=== PATIENT | male | born 1985 | race Caucasian/White ===

== ENCOUNTER 2023-11-29 10:12 | Inpatient (IN) | payer OTHER ==
[2023-11-29 10:39] VITALS: BMI 30.1
[2023-11-29] MEDS ORDERED: BENZONATATE 200 MG CAPSULE PO PRN (11:45)
[2023-11-29] MEDS ORDERED: ACETAMINOPHEN 325 MG TABLET (FP) PO PRN (11:45)
[2023-11-29] MEDS ORDERED: NALOXONE (NARCAN) HCL 4 MG/0.1 ML SPRAY NS PRN (11:45)
[2023-11-29] MEDS ORDERED: IBUPROFEN 600 MG TABLET (FP) PO PRN (11:45)
[2023-11-29] MEDS ORDERED: MAGNESIUM HYDROX 2400MG/30ML ORAL SUSPENSION 30 ML CUP PO PRN (11:45)
[2023-11-29] MEDS ORDERED: hydrOXYzine PAMOATE 25 MG CAPSULE (FP) PO PRN (11:45)
[2023-11-29] MEDS ORDERED: DICYCLOMINE HCL 10 MG CAPSULE PO PRN (11:45)
[2023-11-29] MEDS ORDERED: guaiFENesin 600 MG TABLET.ER (FP) PO PRN (11:45)
[2023-11-29] MEDS ORDERED: IBUPROFEN 400 MG TABLET (FP) PO PRN (11:45)
[2023-11-29] MEDS ORDERED: METHOCARBAMOL 500 MG TABLET PO PRN (11:45)
[2023-11-29] MEDS ORDERED: ONDANSETRON *ODT* 4 MG TABLET SL PRN (11:45)
[2023-11-29] MEDS ORDERED: NALOXONE HCL 0.4 MG/ML VIAL IM PRN (11:45)
[2023-11-29] MEDS ORDERED: LOPERAMIDE HCL 2 MG CAPSULE PO PRN (11:45)
[2023-11-29] MEDS ORDERED: MAG HYDROX/AL HYDROX/SIMETH 30 ML UNIT-DOSE CUP PO PRN (11:45)
[2023-11-29] MEDS ORDERED: BISMUTH SUBSALICYLATE 524 MG/30 ML PO PRN (11:45)
[2023-11-29] MEDS ORDERED: BENZOCAINE/MENTHOL (CHLORASEPTIC ) LOZENGE MM PRN (11:45)
[2023-11-29] MEDS ORDERED: POLYETHYLENE GLYCOL (HEALTHYLAX) 3350 17 GM PACKET PO PRN (11:45)
[2023-11-29] MEDS ORDERED: methaDONE HCL 10 MG TABLET (FOR DETOX USE ONLY) ONE (13:08)
[2023-11-29] MEDS: methaDONE HCL 10 MG TABLET PO ONE (13:13)
[2023-11-29] MEDS ORDERED: cloNIDine HCL 0.1 MG TABLET ONE (13:19)
[2023-11-29] MEDS: cloNIDine HCL 0.1 MG TABLET PO SCH (13:20)
[2023-11-29] MEDS ORDERED: methaDONE HCL 10 MG TABLET PO PRN (13:45)
[2023-11-29] MEDS: MELATONIN 5 MG TABLETS PO SCH (23:05)
[2023-11-29] MEDS: THIAMINE 100 MG TABLET PO SCH (23:05)
[2023-11-30 09:03] VITALS: RESP 18; TEMP 97.1
[2023-11-30] MEDS: PRENATAL VITAMINS W/ FOLIC ACID TABLET (FP) PO SCH (11:00)
[2023-11-30] MEDS: methaDONE 40 MG, methaDONE 10 MG PO ONE (11:01)
[2023-11-30 12:08] LABS: CHLORIDE 101 mmol/L (98-107); POTASSIUM 4.2 mmol/L (3.5-5.1); SODIUM 137 mmol/L (136-145)
[2023-11-30 12:09] LABS: HEMATOCRIT 35.7 % (35.4-49); HEMOGLOBIN 12.1 GM/dL (11.7-16.9); MCHC 33.9 g/dl (32.0-35.9); MEAN CELL VOLUME 85.4 fl (80-96); MEAN PLT VOLUME 9.1 fl (7.5-11.1); PLATELET COUNT 347 10^3/uL (134-434); RBC 4.19 M/mm3 (4.00-5.60); RDW 14.7 % (11.9-15.9); WHITE BLOOD COUNT 5.2 K/mm3 (4.0-10.0)
[2023-11-30 12:12] LABS: CALCIUM 8.8 mg/dL (8.5-10.1); GLUCOSE,RANDOM 132 mg/dL (74-106)
[2023-11-30 12:13] LABS: ALBUMIN 3.1 g/dl (3.4-5.0); ANION GAP 6 mmol/L (4-13); BLOOD UREA NITROGEN 8.3 mg/dL (7-18); CO2 30 mmol/L (21-32)
[2023-11-30 12:15] LABS: SGPT/ALT 37 U/L (13-61)
[2023-11-30 12:16] LABS: BILIRUBIN,TOTAL 0.3 mg/dL (0.2-1); CREATININE 0.7 mg/dL (0.55-1.3); SGOT/AST 22 U/L (15-37); TOT PROT 6.9 g/dl (6.4-8.2)
[2023-11-30 12:18] LABS: ALK PHOS 93 U/L (45-117)
[2023-11-30 13:04] VITALS: BP 121/73; PULSE 68
[2023-12-01] MEDS ORDERED: cloNIDine HCL 0.1 MG TABLET PO PRN
[2023-12-01] MEDS ORDERED: methaDONE 40 MG, methaDONE 20 MG PO ONE (10:00)
[2023-12-02] MEDS ORDERED: methaDONE 40 MG, methaDONE 30 MG PO ONE (10:00)
[2023-12-03] MEDS ORDERED: methaDONE HCL 40 MG DISPERSABLE TABLET PO ONE (10:00)
[2023-12-04] MEDS ORDERED: methaDONE 80 MG, methaDONE 10 MG PO ONE (10:00)
== END 2023-11-30 16:00 | disposition left against medical advice (07) | DRG 770 ==
LOC: YASAS 10:12 → Y6N 13:37
PROVIDERS: ADMIT Allergy & Immunology; ATTEND Surgery
PROC: HZ2ZZZZ Detoxification Services for Substance Abuse Treatment (ICD-10-PCS; principal; 2023-11-29)
DX: F11.23 Opioid dependence with withdrawal (principal); F14.20 Cocaine dependence, uncomplicated; F17.290 Nicotine dependence, other tobacco product, uncomplicated; F41.9 Anxiety disorder, unspecified; G47.00 Insomnia, unspecified
CPT/HCPCS: 36415; 80053; 80305; 80307; 85027; 86780; 93005; 93010

== ENCOUNTER 2023-12-28 13:40 | Inpatient (IN) | payer OTHER ==
[2023-12-28 14:21] VITALS: BMI 29.2
[2023-12-28] MEDS ORDERED: MAG HYDROX/AL HYDROX/SIMETH 30 ML UNIT-DOSE CUP PO PRN (17:37)
[2023-12-28] MEDS ORDERED: NALOXONE (NARCAN) HCL 4 MG/0.1 ML SPRAY NS PRN (17:37)
[2023-12-28] MEDS ORDERED: guaiFENesin 600 MG TABLET.ER (FP) PO PRN (17:37)
[2023-12-28] MEDS ORDERED: IBUPROFEN 400 MG TABLET (FP) PO PRN (17:37)
[2023-12-28] MEDS ORDERED: DICYCLOMINE HCL 10 MG CAPSULE PO PRN (17:37)
[2023-12-28] MEDS ORDERED: NALOXONE HCL 0.4 MG/ML VIAL IM PRN (17:37)
[2023-12-28] MEDS ORDERED: POLYETHYLENE GLYCOL (HEALTHYLAX) 3350 17 GM PACKET PO PRN (17:37)
[2023-12-28] MEDS ORDERED: MAGNESIUM HYDROX 2400MG/30ML ORAL SUSPENSION 30 ML CUP PO PRN (17:37)
[2023-12-28] MEDS ORDERED: BENZONATATE 200 MG CAPSULE PO PRN (17:37)
[2023-12-28] MEDS ORDERED: BENZOCAINE/MENTHOL (CHLORASEPTIC ) LOZENGE MM PRN (17:37)
[2023-12-28] MEDS ORDERED: BISMUTH SUBSALICYLATE 524 MG/30 ML PO PRN (17:37)
[2023-12-28] MEDS ORDERED: IBUPROFEN 600 MG TABLET (FP) PO PRN (17:37)
[2023-12-28] MEDS ORDERED: LOPERAMIDE HCL 2 MG CAPSULE PO PRN (17:37)
[2023-12-28] MEDS ORDERED: ONDANSETRON *ODT* 4 MG TABLET SL PRN (17:37)
[2023-12-28] MEDS ORDERED: ACETAMINOPHEN 325 MG TABLET (FP) PO PRN (17:37)
[2023-12-28] MEDS ORDERED: methaDONE HCL 10 MG TABLET (FOR DETOX USE ONLY) ONE (17:43)
[2023-12-28] MEDS: methaDONE HCL 10 MG TABLET PO ONE (17:55)
[2023-12-28] MEDS: cloNIDine HCL 0.1 MG TABLET PO SCH (18:46)
[2023-12-28] MEDS ORDERED: methaDONE HCL 10 MG TABLET PO PRN (19:36)
[2023-12-28] MEDS: THIAMINE 100 MG TABLET PO SCH (22:40)
[2023-12-28] MEDS: MELATONIN 5 MG TABLETS PO SCH (22:40)
[2023-12-28] MEDS: SULFAMETHOXAZOLE/TRIMETHOPRIM 800MG/160MG D.S. TABLET PO SCH (22:43)
[2023-12-28] MEDS: NICOTINE POLACRILEX 2 MG GUM BUC PRN (22:47)
[2023-12-29] MEDS: PRENATAL VITAMINS W/ FOLIC ACID TABLET (FP) PO SCH (09:33)
[2023-12-29] MEDS: methaDONE 40 MG, methaDONE 10 MG PO ONE (09:33)
[2023-12-29 11:50] LABS: HEMOGLOBIN 10.3 GM/dL (11.7-16.9); MCH 29.4 pg (25.7-33.7); MCHC 34.3 g/dl (32.0-35.9); MEAN CELL VOLUME 85.6 fl (80-96); MEAN PLT VOLUME 9.3 fl (7.5-11.1); PLATELET COUNT 216 10^3/uL (134-434); RDW 14.4 % (11.9-15.9); WHITE BLOOD COUNT 4.3 K/mm3 (4.0-10.0)
[2023-12-29 11:55] LABS: CHLORIDE 103 mmol/L (98-107); POTASSIUM 3.7 mmol/L (3.5-5.1); SODIUM 139 mmol/L (136-145)
[2023-12-29 12:08] LABS: ALBUMIN 2.7 g/dl (3.4-5.0); ANION GAP 5 mmol/L (4-13); BLOOD UREA NITROGEN 5.4 mg/dL (7-18); CALCIUM 8.7 mg/dL (8.5-10.1); CO2 31 mmol/L (21-32); GLUCOSE,RANDOM 118 mg/dL (74-106)
[2023-12-29 12:11] LABS: CREATININE 0.6 mg/dL (0.55-1.3); SGOT/AST 23 U/L (15-37); SGPT/ALT 28 U/L (13-61)
[2023-12-29 12:13] LABS: TOT PROT 5.5 g/dl (6.4-8.2)
[2023-12-29 12:14] LABS: ALK PHOS 73 U/L (45-117)
[2023-12-29 12:16] LABS: BILIRUBIN,TOTAL 0.1 mg/dL (0.2-1)
[2023-12-29] MEDS: hydrOXYzine PAMOATE 25 MG CAPSULE (FP) PO PRN (22:16)
[2023-12-29] MEDS: METHOCARBAMOL 500 MG TABLET PO PRN (22:16)
[2023-12-30] MEDS ORDERED: cloNIDine HCL 0.1 MG TABLET PO PRN
[2023-12-30] MEDS: methaDONE 40 MG, methaDONE 20 MG PO ONE (09:01)
[2023-12-30] MEDS: CEPHALEXIN MONOHYDRATE 500 MG CAPSULE (UD) PO SCH (11:40)
[2023-12-30 17:01] LABS: HIV INTERPRETATION NEGATIVE (NEGATIVE)
[2023-12-31] MEDS: methaDONE 40 MG, methaDONE 30 MG PO ONE (09:08)
[2023-12-31] MEDS: CLOTRIMAZOLE 1% CREAM TP SCH (22:06)
[2024-01-01 08:53] VITALS: BP 110/65; PULSE 66; RESP 16; TEMP 98.6
[2024-01-01] MEDS: methaDONE HCL 40 MG DISPERSABLE TABLET PO ONE (09:05)
[2024-01-02] MEDS ORDERED: methaDONE 80 MG, methaDONE 10 MG PO ONE (10:00)
== END 2024-01-01 09:51 | disposition home or self-care (01) | DRG 773 ==
LOC: YASAS 13:40 → Y6N 16:26
PROVIDERS: ADMIT Allergy & Immunology; ATTEND Surgery
PROC: HZ2ZZZZ Detoxification Services for Substance Abuse Treatment (ICD-10-PCS; principal; 2023-12-28)
DX: F11.23 Opioid dependence with withdrawal (principal); F14.20 Cocaine dependence, uncomplicated; F17.210 Nicotine dependence, cigarettes, uncomplicated; F90.9 Attention-deficit hyperactivity disorder, unspecified type; L03.116 Cellulitis of left lower limb; B35.3 Tinea pedis; Z56.0 Unemployment, unspecified; Z59.00 Homelessness unspecified
CPT/HCPCS: 36415; 80053; 80305; 80307; 85027; 86780; 86803; 87389; 87522; 93005; 93010